=== PATIENT | female | born 1955 | race Caucasian/White ===

== ENCOUNTER 2019-07-26 14:02 | Outpatient (CLI) | payer OTHER, SELFPAY ==
--- NOTE | ~2019-07-26 | MM_ITS ---
EXAMINATION: MM screening jean BI w hannah HISTORY: Screening mammogram TECHNIQUE: Craniocaudal and mediolateral oblique 3-D tomosynthesis images were obtained and synthetic 2-D images were generated. CAD analysis was submitted and interpreted. COMPARISON: 05/31/2018, 05/23/2017 bilateral digital screening mammogram examinations BREAST PARENCHYMAL COMPOSITION: There are scattered areas of fibroglandular density. FINDINGS: There is no evidence of suspicious mass, calcification, or architectural distortion to sugg est malignancy in either breast. There has been no suspicious interval change. IMPRESSION: 1. No mammographic evidence of malignancy. 2. Recommend routine screening mammography in one year. BI-RADS Category 1: Negative Reviewed, dictated and finalized at location A.
== END 2019-07-26 14:03 | disposition home or self-care (01) ==
LOC: ANHIMG 14:16
PROVIDERS: PCP Family Medicine; Visit Provider Nurse Practitioner
DX: Z12.31 Encounter for screening mammogram for malignant neoplasm of breast (principal)
CPT/HCPCS: 77063; 77067

== ENCOUNTER → 2020-06-11 09:02 | Outpatient (CLI) | payer OTHER, SELFPAY ==
[2020-06-11 17:57] LABS: SARS-CoV-2 RNA PCR Positive
== END ==
PROVIDERS: PCP Family Medicine; Visit Provider Family Medicine
DX: U07.1 COVID-19 (principal)
CPT/HCPCS: C9803; U0003; U0005

== ENCOUNTER 2020-06-16 16:59 | Emergency (ER) | payer OTHER, SELFPAY ==
[2020-06-16] VITALS (16 sets, daily range): BP systolic 102–145; BP diastolic 60–84; PULSE 102–108; RESP 18–26; TEMP 37.1; O2SAT 91–97
--- NOTE | ~2020-06-16 | XR_ITS ---
XR chest 1V portable DATE: 06/16/2020 21:17 INDICATION: Cough, shortness of breath, nausea and vomiting. Covid-positive diagnosis last week. TECHNIQUE: Portable upright AP chest on 06/16/2020 at 2121 hours COMPARISON: portable AP chest at 1343 hours FINDINGS: Diffuse patchy infiltrate throughout the right lung, sparing only the apex. There is patchy infiltrate in the left mid and particularly left lower lung. Heart size appears normal. No pleural effusion or pneumothorax. IMPRESSION: Bilateral pulmonary infiltrates suggesting bilateral pneumonia Reviewed, dictated and finalized at location A.
--- NOTE | 2020-06-16 17:23 | ECG_ITS ---
Measurements Intervals [place] Rate: 108 P: 25 NM: 174 QRS: -2 QRSD: 98 T: 46 QT: 345 QTc: 463 Interpretive Statements SINUS TACHYCARDIA INCOMPLETE RIGHT BUNDLE BRANCH BLOCK ABNORMAL ECG Electronically Signed On 06-18-2020 12:47:00 CDT by Michael Tam D.O.
--- NOTE | 2020-06-16 21:10 | ED.GENADULT ---
HPI - General Adult General Chief complaint: Weakness Stated complaint: covid symptoms Time Seen by Provider: 06/16/20 20:56 History of Present Illness HPI narrative: Patient is a 65-year-old female who presents the emergency department with chief complaint of generalized weakness. Patient reports on she was diagnosed with COVID-19 reports that she has been having multiple episodes of nausea and vomiting and has been unable to keep fluids down. Patient reports that she had some discomfort in her epigastric region and reports still a bit of diarrhea with this. The patient reports has had some mild coughing but not really horrible the patient does report that she had a bit of productive sputum. Related Data Home Medications Medication Instructions Recorded Confirmed loratadine 10 mg tablet 10 mg PO DAILY 04/05/19 12/18/19 simvastatin 20 mg tablet 20 mg PO QPM tablet 04/05/19 12/18/19 black cohosh 540 mg capsule 540 mg PO DAILY cap 04/22/19 12/18/19 omega-3 fatty acids 500 mg capsule 500 mg PO DAILY 12/18/19 12/18/19 lisinopril 20 See Rx Instructions .ROUTE 05/18/20 05/18/20 mg-hydrochlorothiazide 12.5 mg .COMPLEX tablet tablet Allergies Allergy/AdvReac Type Severity Reaction Status Date / Time ibuprofen Allergy Severe Unknown Verified 05/18/20 13:11 Penicillins Allergy Unknown Unknown Verified 05/18/20 13:11 Review of Systems Review of Systems: Narrative: A 10 system review of systems was completed on the patient and is negative except for what is stated in the HPI. Nursing and ancillary documentation was reviewed. [facility] Past Medical History Medical History Allergic rhinitis Anxiety Asthma Dyslipidemia Environmental allergies Essential (primary) hypertension Melanoma left shoulder Mild intermittent asthma without complication Ovarian cyst Spondylolisthesis L5-S1 - 05/07/1997 Surgical History Surgical History History of sinus surgery 11/11/2014 History of skin surgery (~1987) melanoma removal left shoulder History of total hysterectomy (~1997) Family History Family History Other Carcinoma of colon Social History Social History Smoking status: Never smoker Tobacco type: cigarettes Second hand tobacco smoke exposure: No Smoking end date: 03/06/08 Alcohol intake: current Substance use: never Substance use type: does not use Gender identity (if verbalized by the patient): Female Exam Narrative: Exam Narrative: GENERAL: Well-appearing, well-nourished, and in no acute distress. HEAD: Normocephalic, atraumatic. EYES: PERRLA and EOMI. ENT: Nares clear, no rhinorrhea or epistaxis. Mucous membranes moist. NECK: Supple. CHEST: Clear to auscultation. No respiratory distress. HEART: Regular rate and rhythm. No murmur heard. Normal peripheral pulses. ABDOMEN: Soft, tender to palpation in the epigastric region, nondistended, normal active bowel sounds. EXTREMITIES: Normal range of motion. No edema. SKIN: Warm, dry, no rash. NEURO: No focal deficits. Alert and oriented x3. PSYCH: Normal mood and affect. Course Vital Signs Vital signs: Vital Signs Temperature 37.1 C 06/16/20 17:16 Pulse Rate 108 H 06/16/20 17:16 Respiratory Rate 18 06/16/20 17:16 Blood Pressure 112/71 06/16/20 17:16 Pulse Oximetry 92 06/16/20 17:16 Temperature 37.1 C 06/16/20 17:16 Pulse Rate 102 H 06/16/20 21:02 Respiratory Rate 25 H 06/16/20 23:01 Blood Pressure 128/76 06/16/20 23:01 Pulse Oximetry 93 06/16/20 23:01 Medical Decision Making Vital Signs Vital Signs: Vital Signs Temperature 37.1 C 06/16/20 17:16 Pulse Rate 108 H 06/16/20 17:16 Respiratory Rate 18 06/16/20 17:16 Blood Pressure 112/71
[2020-06-16] MEDS: SODIUM CHLORIDE 0.9% IV 1,000 ML 999 ML IV CONT ×2 (21:32→23:20)
[2020-06-16] MEDS: ONDANSETRON INJ 4 MG/2 ML VIAL IV PUSH (21:33)
[2020-06-16 21:38] LABS: Basophils Percent Auto 0.2 % (0.2-1.2); Hematocrit 40.7 % (37.0-47.0); Hemoglobin 13.5 g/dL (12.0-15.0); Immature Granulocyte Absolute 0.01 K/mm3 (0.00-0.031); Immature Granulocyte Percent A 0.2 % (0-0.5); Lymphocytes Absolute Auto 0.71 K/mm3 (0.9-3.2); Lymphocytes Percent Auto 12.2 % (18.3-44.2); Mean Corpuscular HGB Conc 33.2 g/dl (32-36); Mean Corpuscular Hemoglobin 30.7 pg (26-34); Mean Corpuscular Volume 92.5 fl (80-100); Mean Platelet Volume 11.7 fl (7.4-10.4); Monocytes Absolute Auto 0.5 K/mm3 (0.1-0.6); Monocytes Percent Auto 8.9 % (2.6-8.5); Neutrophils Absolute Auto 4.6 K/mm3 (1.3-6.7); Neutrophils Percent Auto 78.5 % (45.5-73.1); Platelet Count Result 213 k/mm3 (150-375); White Blood Count 5.8 K/mm3 (4.5-10.0)
[2020-06-16 21:48] LABS: Alanine Aminotransferase 39 U/L (4-35); Albumin Level 4.4 g/dL (3.5-5.1); Alkaline Phosphatase 87 U/L (38-126); Anion Gap 10 mmol/L (8-16); Aspartate Amino Transferase 36 U/L (14-36); Bilirubin,Total 0.4 mg/dL (0.2-1.3); Blood Urea Nitrogen 21 mg/dL (7-17); Calcium 8.8 mg/dL (8.4-10.2); Carbon Dioxide 26 mmol/L (22-30); Chloride 102 mmol/L (98-107); Estimated CRCL calculation 58 ml/min; Estimated Glomerular Filt Rate > 60; Glucose 115 mg/dL (65-105); Lipase 54 U/L (23-300); Potassium 3.7 mmol/L (3.4-5.0); Sodium 138 mmol/L (137-145)
[2020-06-16 21:59] LABS: Troponin I < 0.012 ng/mL (0.000-0.034)
[2020-06-16 23:36] LABS: Add Urine Microscopic? YES; Appearance Urine Cloudy (Clear); Bacteria Urine Trace /hpf; Bilirubin Urine Negative (Negative); Blood Urine 1+ (Negative); Color Urine Yellow (Yellow); Glucose Urine UA Negative (Negative); Ketones Urine 1+ mg/dL (Negative); Leukocyte Esterase Ur Negative LEU/UL (Negative); Mucus Urine Heavy /lpf; Nitrate Urine Positive (Negative); Protein Urine 1+ mg/dL (Negative); RBC Urine 0-2 /hpf (0-2); Specific Grav Ur 1.027 (1.001-1.035); Squamous Epithelial Cell Urine Moderate /hpf (Few); Urobilinogen Urine Negative mg/dL (<2.0)
[2020-06-16] MEDS: ACETAMINOPHEN 500 MG TABLET 1000 MG PO (23:53)
[2020-06-17 00:52] VITALS: BP 126/72; PULSE 89; RESP 22; O2SAT 95
== END 2020-06-17 00:52 | disposition home or self-care (01) ==
PROVIDERS: Emergency Provider Emergency Medicine; PCP Family Medicine
DX: U07.1 COVID-19 (principal); J12.82 Pneumonia due to coronavirus disease 2019; E86.0 Dehydration; E78.5 Hyperlipidemia, unspecified; I10 Essential (primary) hypertension; Z85.820 Personal history of malignant melanoma of skin; J45.20 Mild intermittent asthma, uncomplicated
CPT/HCPCS: 36415; 71045; 80053; 81001; 83605; 83690; 84484; 85025; 93005; 96361; 96374; 99284; A9270; J2405; J7030

== ENCOUNTER 2020-07-28 07:38 | Outpatient (CLI) | payer OTHER, SELFPAY ==
--- NOTE | ~2020-07-28 | MM_ITS ---
EXAMINATION: MM screening jean BI w hannah HISTORY: Screening mammogram TECHNIQUE: Craniocaudal and mediolateral oblique 3-D tomosynthesis images were obtained and synthetic 2-D images were generated. CAD analysis was submitted and interpreted. COMPARISON: 07/26/2019, 05/23/2018, 05/24/2007 bilateral digital screening mammogram examinations BREAST PARENCHYMAL COMPOSITION: There are scattered areas of fibroglandular density. FINDINGS: There is no evidence of suspicious mass, calcification, or architectural distortion to sugg est malignancy in either breast. There has been no suspicious interval change. IMPRESSION: 1. No mammographic evidence of malignancy. 2. Recommend routine screening mammography in one year. BI-RADS Category 1: Negative Reviewed, dictated and finalized at location A.
== END 2020-07-28 07:39 | disposition home or self-care (01) ==
PROVIDERS: PCP Family Medicine; Visit Provider Obstetrics & Gynecology Gynecology
DX: Z12.31 Encounter for screening mammogram for malignant neoplasm of breast (principal)
CPT/HCPCS: 77063; 77067

== ENCOUNTER 2021-08-03 08:06 | Outpatient (CLI) | payer OTHER, SELFPAY ==
--- NOTE | ~2021-08-03 | MM_ITS ---
EXAMINATION: MM screening jean BI w hannah HISTORY: Screening mammogram TECHNIQUE: Craniocaudal and mediolateral oblique 3-D tomosynthesis images were obtained and synthetic 2-D images were generated. CAD analysis was submitted and interpreted. COMPARISON: 07/28/2020, 07/26/2019, 05/31/2018 bilateral screening mammogram examinations BREAST PARENCHYMAL COMPOSITION: There are scattered areas of fibroglandular density. FINDINGS: Right breast: There is no evidence of suspicious mass, calcification, or architectural dist ortion to suggest malignancy in the right breast. There has been no suspicious interval change. Left breast: There is a focal asymmetry in the posterior mid and lower outer left breast. Diagnostic left mammogram and ultrasound examination are recommended IMPRESSION: 1. Focal asymmetry, posterior lower mid to outer left breast 2. Diagnostic left mammogram and left breast ultrasound examination are recommended. BI-RADS Category 0: Incomplete: Needs additional imaging evaluation. Reviewed, dictated and finalized at location A. IMPRESSION: 1. Focal asymmetry, posterior lower mid to outer left breast 2. Diagnostic left mammogram and left breast ultrasound examination are recomme nded. BI-RADS Category 0: Incomplete: Needs additional imaging evaluation.
== END 2021-08-03 08:07 | disposition home or self-care (01) ==
LOC: ANHIMG 08:09
PROVIDERS: PCP Family Medicine; Visit Provider Nurse Practitioner
DX: Z12.31 Encounter for screening mammogram for malignant neoplasm of breast (principal); R92.8 Other abnormal and inconclusive findings on diagnostic imaging of breast
CPT/HCPCS: 77063; 77067

== ENCOUNTER 2021-08-13 11:50 | Outpatient (CLI) | payer OTHER, SELFPAY ==
--- NOTE | ~2021-08-13 | MMUS_ITS ---
EXAMINATION: MM diagnostic jean LT w hannah, US breast LT limited HISTORY: Left breast asymmetry on screening mammogram TECHNIQUE: Additional 3-D tomosynthesis images of the left breast were performed and synthetic 2-D im ages were generated. CAD analysis was submitted and interpreted. High resolution limited left breast ultrasound was performed. COMPARISON: 08/03/2021, 07/28/2020, 07/26/2019, 05/31/2018 FINDINGS: MAMMOGRAPHIC FINDINGS: There is a return to baseline fibroglandular appearance with spot compression of the left breast in t he area questioned on screening mammogram. ULTRASOUND: There is no evidence of focal abnormal solid or cystic mass in the vicinity of the mammographic findi ng in question. IMPRESSION: 1. No mammographic or sonographic evidence of malignancy. 2. Recommend routine screening mammography in one year. BI-RADS Category 1: Negative Reviewed, dictated and finalized at location A. IMPRESSION: 1. No mammographic or sonographic evidence of malignancy. 2. Recommend routine screening mammography in one year. BI-RADS Category 1: Negative
== END 2021-08-13 11:51 | disposition home or self-care (01) ==
LOC: ANHIMG 11:57
PROVIDERS: PCP Family Medicine; Visit Provider Obstetrics & Gynecology Gynecology
DX: R92.8 Other abnormal and inconclusive findings on diagnostic imaging of breast (principal)
CPT/HCPCS: 76642; 77061; 77065; G0279

== ENCOUNTER 2022-06-29 07:33 | Outpatient (CLI) | payer OTHER, MEDICARE, SELFPAY ==
--- NOTE | 2022-06-29 07:47 | ECG_ITS ---
Measurements Intervals [place] Rate: 70 P: 32 NE: 192 QRS: 18 QRSD: 83 T: 47 QT: 390 QTc: 423 Interpretive Statements SINUS RHYTHM COMPARED TO ECG 06/16/2020 17:23:53 SINUS RHYTHM NOW PRESENT Electronically Signed On 06-29-2022 9:47:09 CDT by Maral Jamison M.D.
== END 2022-06-29 07:34 | disposition home or self-care (01) ==
LOC: ANHIMG 07:38
PROVIDERS: PCP Family Medicine; Visit Provider Nurse Practitioner
DX: I45.10 Unspecified right bundle-branch block (principal)
CPT/HCPCS: 93005

== ENCOUNTER 2022-07-04 12:03 | Outpatient (CLI) | payer OTHER, MEDICARE, SELFPAY ==
--- NOTE | ~2022-07-04 | XR_ITS ---
Clinical Indication: Shortness of breath PA and lateral views of the chest: Comparison: 06/16/2020 Findings: The lungs are clear, without evidence of focal consolidation or pleural effusion. Cardiome diastinal silhouette is within normal limits. Bones and soft tissues are unremarkable. Impression: Normal chest. Reviewed, dictated and finalized at location . Impression: Normal chest.
== END 2022-07-04 12:04 ==
PROVIDERS: PCP Family Medicine; Visit Provider Family Medicine
DX: R06.02 Shortness of breath (principal)
CPT/HCPCS: 71046

== ENCOUNTER 2022-10-25 07:29 | Outpatient (CLI) | payer MEDICARE, SELFPAY ==
--- NOTE | ~2022-10-25 | MM_ITS ---
EXAMINATION: MM screening jean BI w hannah HISTORY: Screening mammogram TECHNIQUE: Craniocaudal and mediolateral oblique 3-D tomosynthesis images were obtained and synthetic 2-D images were generated. CAD analysis was submitted and interpreted. COMPARISON: 08/13/2021 diagnostic left mammogram and limited left breast ultrasound examination 08/03/2021, 07/28/2020, 07/26/2019 bilateral screening mammogram examinations. BREAST PARENCHYMAL COMPOSITION: There are scattered areas of fibroglandular density. FINDINGS: There is no evidence of suspicious mass, calcification, or architectural distortion to sugg est malignancy in either breast. There has been no suspicious interval change. IMPRESSION: 1. No mammographic evidence of malignancy. 2. Recommend routine screening mammography in one year. Reviewed, dictated and finalized at location A.
== END 2022-10-25 07:30 | disposition home or self-care (01) ==
PROVIDERS: PCP Family Medicine; Visit Provider Nurse Practitioner
DX: Z12.31 Encounter for screening mammogram for malignant neoplasm of breast (principal)
CPT/HCPCS: 77063; 77067

== ENCOUNTER 2022-10-26 11:54 | Outpatient (CLI) | payer MEDICARE, SELFPAY ==
--- NOTE | ~2022-10-26 | CT_ITS ---
EXAMINATION: CT abdomen pelvis w con DATE: 10/26/2022 12:31 INDICATION: Right lower quadrant abdominal pain for 3 days. Nausea. TECHNIQUE: Computed tomography (CT) of the abdomen and pelvis was performed with 100 CC Omnipaque 350 intravenous contrast. Automated exposure control and iterative reconstruction technique were employe d. Exam dose: 862.27 mGy-cm total exam DLP. COMPARISON: None. FINDINGS: There is mild bibasilar dependent lower lobe discoid atelectasis. There are at least four 5 mm or smaller hepatic cysts. The liver, gallbladder, bile ducts, pancreas, pancreatic duct and spleen otherwise appear unremarkable. Normal morphology of the adrenal glands. Occasional small cysts of each kidney and one larger lateral upper pole left renal 1.7 cm cyst. No urinary tract calculus or hydroureteronephrosis. The urinary bladder is unremarkable. Status post hysterectomy. There is atherosclerotic calcification but normal caliber of the abdominal aorta. No intraperitoneal or retroperitoneal or pelvic mass lesion or adenopathy or ascites. Normal appendix. There is no evidence of appendicitis. There are scattered diverticula of left and to a lesser extent right colon. There is lateral right paracolic fat stranding at the cecum and ascending colon, likely due to epiplo ic appendagitis. Diverticulitis is considered less likely. No abscess is identified. No bowel obstruction or intraperitoneal free air. Degenerative changes of the lower thoracic and lumbar spine including severe degenerative disc diseas e at L5-S1. Bilateral L5 pars intra-articular is defects with grade 2 anterolisthesis at L5-S1. IMPRESSION: Epiploic appendagitis of right colon Hepatic and bilateral renal cysts Mild colonic diverticulosis Bilateral L5 pars intra-articular is defects with associated grade 2 anterolisthesis at L5-S1 Severe degenerative disc disease at L5-S1 Reviewed, dictated and finalized at Location A. Reviewed, dictated and finalized at location A. IMPRESSION: Epiploic appendagitis of right colon Hepatic and bilateral renal cysts Mild colonic diverticulosis Bilateral L5 pars intra-articular is defects with associated grade 2 anterolist hesis at L5-S1 Severe degenerative disc disease at L5-S1
[2022-10-26 12:24] LABS: Estimated Glomerular Filt Rate > 60
== END 2022-10-26 11:55 | disposition home or self-care (01) ==
PROVIDERS: PCP Family Medicine; Visit Provider Family Medicine
DX: R10.31 Right lower quadrant pain (principal); K63.89 Other specified diseases of intestine; N28.1 Cyst of kidney, acquired; K76.89 Other specified diseases of liver; K57.90 Diverticulosis of intestine, part unspecified, without perforation or abscess without bleeding; M43.17 Spondylolisthesis, lumbosacral region; M51.37 Other intervertebral disc degeneration, lumbosacral region
CPT/HCPCS: 74177; Q9967

== ENCOUNTER 2022-11-05 08:32 | Outpatient (CLI) | payer MEDICARE, SELFPAY ==
--- NOTE | ~2022-11-05 | DEXA_ITS ---
Bone Density Report Name: FATOU BHATT Age: 67 Sex: Female Ethnicity: White Date of : 1955 Indication: postmenopausal; screening for osteoporosis; height loss; history of glucocorticoids; asthma or emphysema; hysterectomy; Referring Provider: JHON, ALAYNA Study: Bone densitometry was performed. Exam Date: November 05, 2022 Accession number: [id number] Bone Density: Region BMD T-score Z-score Classification AP Spine(L1-L4) 1.032 -0.1 1.7 Normal Femoral Neck (Left) 0.835 -0.1 1.4 Normal Total Hip (Left) 1.040 0.8 2.1 Normal Femoral Neck (Right) 0.791 -0.5 1.0 Normal Total Hip (Right) 0.978 0.3 1.5 Normal Total Hip Mean 1.009 0.6 1.8 Normal World Health Organization criteria for BMD impression classify patients as: Normal (T-score at or above -1.0), Osteopenia (T-score between -1.0 and -2.5), or Osteoporosis (T-score at or below -2.5). 10-year Fracture Risk: FRAX not reported because: All T-scores for Spine Total, Hip Total, Femoral Neck at or above -1.0 Previous Exams: Region Exam Age BMD T-score BMD Change BMD Change Date g/cm2 vs Baseline vs Previous AP Spine (L1-L4) 11/05/2022 67 1.032 -0.1 -0.004 (-0.4%) 0.028 (2.8%)* 05/31/2018 63 1.004 -0.4 -0.031 (-3.0%) -0.031 (-3.0%) 03/09/2015 59 1.035 -0.1 Total Hip(Left) 11/05/2022 67 1.040 0.8 -0.008 (-0.7%) -0.057 (-5.2%) 05/31/2018 63 1.097 1.3 0.049 (4.7%)* 0.049 (4.7%)* 03/09/2015 59 1.048 0.9 Total Hip(Right) 11/05/2022 67 0.978 0.3 -0.023 (-2.3%) -0.105 (-9.7%) 05/31/2018 63 1.082 1.2 0.082 (8.2%)* 0.082 (8.2%)* 03/09/2015 59 1.000 0.5 *Denotes significance at 95% confidence level, LSC for AP Spine = 0.022 g/cm2, LSC for Total Hip = 0.027 g/cm2 Clinical Information Provided by Patient: Has taken Glucocorticoids Has used the following medications: Vitamin D, Calcium Has the following medical conditions: Asthma or Emphysema, Hysterectomy Patient maximum height was 64.5 Menopause Age: 42 No regular weight bearing exercise Drinks caffeinated beverages Onset of menses at age 14 Number of children 0 Impression: The patient has normal bone mass. The patient has risk factors, including: history of glucocorticoid therapy. The BMD for the Total Hip(Left) decreased, changing by -5.2% since the last DXA exam. The BMD for the Total Hip(Right) decreased, changing by -9.7% since the last DXA exam. D
== END 2022-11-05 08:33 | disposition home or self-care (01) ==
LOC: ANHIMG 08:35
PROVIDERS: PCP Family Medicine; Visit Provider Nurse Practitioner
DX: Z78.0 Asymptomatic menopausal state (principal)
CPT/HCPCS: 77080

== ENCOUNTER 2023-01-30 10:56 | Emergency (ER) | payer MEDICARE, SELFPAY ==
--- NOTE | ~2023-01-30 | CT_ITS ---
EXAMINATION: CT brain wo con DATE: 01/30/2023 13:44 INDICATION: Dizziness. TECHNIQUE: Computed tomography (CT) of the head was performed without intravenous contrast. The mA wa s adjusted according to patient size. Iterative reconstruction technique was employed. The dose-lengt h product was 605.33 mGy-cm. COMPARISON: None FINDINGS: There is no intracranial hemorrhage, acute infarction, or abnormal intracranial mass lesion . There are scattered areas of low attenuation in the cerebral white matter, which is within normal l imits for the patient's age. The ventricles are normal in size. The orbits are normal. There is mucos al thickening in the paranasal sinuses. The mastoid air cells are normal. IMPRESSION: 1. Normal aging brain. Reviewed, dictated and finalized at location A. SERVICE TECHNICIAN IMPRESSION: 1. Normal aging brain.
[2023-01-30 11:09] VITALS: BP 152/90; PULSE 90; RESP 18; TEMP 36.5; O2SAT 97
[2023-01-30 12:02] VITALS: BP 132/80; PULSE 83; RESP 17; O2SAT 97
--- NOTE | 2023-01-30 12:11 | ECG_ITS ---
Measurements Intervals [place] Rate: 78 P: 36 ME: 184 QRS: 13 QRSD: 88 T: 40 QT: 383 QTc: 439 Interpretive Statements SINUS RHYTHM INCOMPLETE RIGHT BUNDLE BRANCH BLOCK LOW QRS VOLTAGE IN PRECORDIAL LEADS BASELINE ARTIFACT- I, II, III, AVR, AVL, AVF, V5 BORDERLINE ECG COMPARED TO ECG 06/29/2022 07:56:37 NO SIGNIFICANT CHANGES Electronically Signed On 01-30-2023 13:04:19 [employer] by Michael Tam D.O.
[2023-01-30 12:31] LABS: Basophils Absolute Auto 0.1 K/mm3 (0.0-0.1); Basophils Percent Auto 0.8 % (0.2-1.2); Eosinophils Absolute Auto 0.2 K/mm3 (0-0.3); Eosinophils Percent Auto 2.5 % (0-4.4); Hematocrit 42.3 % (37.0-47.0); Hemoglobin 13.3 g/dL (12.0-15.0); Immature Granulocyte Absolute 0.02 K/mm3 (0.00-0.031); Immature Granulocyte Percent A 0.3 % (0-0.5); Lymphocytes Absolute Auto 1.63 K/mm3 (0.9-3.2); Lymphocytes Percent Auto 25.3 % (18.3-44.2); Mean Corpuscular HGB Conc 31.4 g/dl (32-36); Mean Corpuscular Hemoglobin 29.6 pg (26-34); Mean Corpuscular Volume 94.2 fl (80-100); Mean Platelet Volume 11.8 fl (7.4-10.4); Monocytes Absolute Auto 0.6 K/mm3 (0.1-0.6); Neutrophils Percent Auto 62.1 % (45.5-73.1); Platelet Count Result 242 k/mm3 (150-375); Red Blood Count 4.49 M/mm3 (4.2-5.4); Red Cell Distribution Width 14.3 % (11.5-14.5); White Blood Count 6.4 K/mm3 (4.5-10.0)
[2023-01-30 12:43] LABS: Alanine Aminotransferase 24 U/L (6-35); Albumin Level 4.5 g/dL (3.5-5.1); Alkaline Phosphatase 82 U/L (38-126); Anion Gap 11 mmol/L (8-16); Aspartate Amino Transferase 26 U/L (14-36); Bilirubin,Total 0.6 mg/dL (0.2-1.3); Blood Urea Nitrogen 17 mg/dL (7-17); Calcium 9.5 mg/dL (8.4-10.2); Carbon Dioxide 26 mmol/L (22-30); Chloride 98 mmol/L (98-107); Estimated CRCL calculation 72 ml/min; Estimated Glomerular Filt Rate > 60; Glucose 103 mg/dL (65-110); Sodium 135 mmol/L (137-145)
[2023-01-30 13:56] VITALS: BP 121/80; BP 139/83; PULSE 79; PULSE 83
[2023-01-30 13:58] VITALS: BP 128/86; PULSE 88
--- NOTE | 2023-01-30 14:12 | ED.DIZZY ---
HPI - Dizziness General Chief Complaint: Dizziness Stated Complaint: episode of dizziness on monday Time Seen by Provider: 01/30/23 12:19 History of Present Illness HPI Narrative: 67-year-old female presenting to emergency department for evaluation of dizziness and not feeling well. Patient reports on Monday she had onset of dizziness and a wavy sensation. patient reports his symptoms were worse on Monday but have begun to improve. Patient states today she just feels off. Patient denies any focal numbness or weakness. Patient denies any associated nausea vomiting or diarrhea. Related Data Home Medications Medication Instructions Recorded Confirmed fluticasone furoate 200 1 inh inhalation DAILY 12/13/22 12/14/22 mcg/actuation blister powder for inhalation (Arnuity Ellipta) turmeric root extract 1,053 mg 1,076 mg PO DAILY 12/13/22 12/14/22 tablet Allergies Allergy/AdvReac Type Severity Reaction Status Date / Time ibuprofen Allergy Severe Unknown Verified 12/14/22 14:20 naproxen [From Naprosyn] Allergy Severe Swelling Verified 12/14/22 14:20 of Lip/Tongue/Throat Penicillins Allergy Unknown Unknown Verified 12/14/22 14:20 Review of Systems Review of Systems: All systems reviewed & are unremarkable except as noted in HPI and below PMFSH Past Medical History Medical History Allergic rhinitis Anxiety Asthma COVID-19 Dyslipidemia Environmental allergies Essential (primary) hypertension History of COVID-19 06/2020 Melanoma left shoulder Mild intermittent asthma without complication Ovarian cyst Pneumonia due to 2019 novel coronavirus Pre-diabetes Spondylolisthesis L5-S1 - 05/07/1997 Vitamin D deficiency Surgical History Surgical History History of sinus surgery 11/11/2014 History of skin surgery (~1987) melanoma removal left shoulder History of total hysterectomy (~1997) Family History Family History Other Carcinoma of colon Social History Social History Smoking packs per day: 2 Smoking cigarettes per day: 40.0 Years smoked: 40 Smoking pack-years: 80.00 Smoking status: Former smoker Tobacco type: cigarettes Second hand tobacco smoke exposure: No Smoking end date: 03/06/08 Alcohol intake: current Alcohol use details: 4 glasses of wine consumed weekly Substance use: never Substance use type: does not use Lack of Transportation: No Lack of Food: Never True Current Housing: I Have Housing Concerned About Future Housing: No Difficulty Paying Gas/Electric Bills: No Difficulty Paying for Meds: No Currently Unemployed: No Education: High School Diploma/GED Difficulty w/ Childcare or Family Care: No Living arrangements: with family Gender identity (if verbalized by the patient): Female Exam Narrative: APPEARANCE: Well appearing, no pain, no distress, well-nourished. HEAD: normocephalic, atraumatic. EYES: PERRLA/EOMI, conjunctivae clear. NOSE: Normal no drainage EARS:TMS clear with good light reflex. THROAT: Pharynx clear, no exudate. NECK: Supple. No adenopathy, no masses. RESPIRATORY: Airway patent, respirations nonlabored. Clear to auscultation bilaterally, no rales, rhonchi, wheezing. CARDIOVASCULAR: Regular rate and rhythm without murmurs rubs or gallops. ABDOMINAL: Soft, nontender, nondistended, normal bowel sounds MUSCULOSKELETAL: Moves all extremities. Strength/ROM intact, No edema, No calf tenderness. NEURO: Alert. Cranial nerves II through XII intact. Normal for tobacco or tandem gait, normal heel and toe stand. Negative Romberg SKIN: Warm, dry. Normal Color Course Course Emergency Course: 67-year-old female presents to the emergency department for dizziness. Patient did feel improv
[2023-01-30] MEDS: MECLIZINE HCL 25 MG TABLET PO (14:15)
[2023-01-30 14:37] VITALS: PULSE 84; RESP 15; O2SAT 95
[2023-01-30 15:13] LABS: Influenza A QL RT-PCR Negative (Negative); Influenza B QL RT-PCR Negative (Negative); RSV RNA, RT-PCR Negative (Negative); SARS-CoV-2 RNA PCR Negative (Negative)
[2023-01-30 15:54] VITALS: BP 128/68; PULSE 90; RESP 18; O2SAT 99
== END 2023-01-30 15:55 | disposition home or self-care (01) ==
PROVIDERS: Emergency Provider Emergency Medicine; PCP Family Medicine
DX: H81.10 Benign paroxysmal vertigo, unspecified ear (principal); Z20.822 Contact with and (suspected) exposure to COVID-19; I10 Essential (primary) hypertension; J45.20 Mild intermittent asthma, uncomplicated; E78.5 Hyperlipidemia, unspecified; E55.9 Vitamin D deficiency, unspecified; Z85.820 Personal history of malignant melanoma of skin; Z86.16 Personal history of COVID-19; Z87.01 Personal history of pneumonia (recurrent); Z90.710 Acquired absence of both cervix and uterus; Z87.891 Personal history of nicotine dependence
CPT/HCPCS: 36415; 70450; 80053; 85025; 87637; 93005; 99284; A9270

== ENCOUNTER 2023-07-04 06:56 | Outpatient (CLI) | payer MEDICARE, SELFPAY ==
--- NOTE | ~2023-07-04 | CT_ITS ---
CT Scan of the Chest without Contrast: Clinical Indication: Lung cancer screening, nicotine dependence Technique: Contiguous sections were acquired throughout the chest without intravenous contrast. Dose reduction technique was used on this scan by utilizing automated exposure control and iterative recon struction technique. The dose-length product (DLP) was 140.55 mGy-cm. Findings: There is no evidence of any significant mediastinal, hilar or axillary lymphadenopathy. The mediastin al soft tissues appear normal. There is no evidence of pleural or pericardial effusion. 6 mm irregular nodule or scarring present in the right lung apex. There is mild bibasilar scarring or atelectatic change. Minimal emphysema. Images through the upper abdomen reveal no abnormalities. Impression: Lung RADS 3: Probably benign. Six-month follow-up screening CT advised. Reviewed, dictated and finalized at [facility]. Impression: Lung RADS 3: Probably benign. Six-month follow-up screening CT advised.
== END 2023-07-04 06:57 | disposition home or self-care (01) ==
PROVIDERS: PCP Family Medicine; Visit Provider Family Medicine
DX: Z12.2 Encounter for screening for malignant neoplasm of respiratory organs (principal); Z87.891 Personal history of nicotine dependence
CPT/HCPCS: 71271

== ENCOUNTER 2023-08-07 05:57 | Day surgery (SDC) | payer MEDICARE, SELFPAY ==
[2023-06-26 10:05] VITALS: BMI 32.4
--- NOTE | 2023-08-01 09:38 | PM.HPGS ---
History of Present Illness History of Present Illness Consent: Risks, benefits, and alternatives have been discussed and questions answered. Patient agrees to proceed with procedure. Chief complaint: Family HX Colon Cancer, Personal HX Polyps Narrative: Gin Daley is a 68 year old female With a family history of colon cancer and who herself had several polyps removed 5 years ago. Review of Systems Review of Systems: All systems reviewed & are unremarkable except as noted in HPI and below PMFSH Past Medical History Medical History Allergic rhinitis Anxiety Asthma Dyslipidemia Environmental allergies Essential (primary) hypertension History of COVID-19 06/2020 Intermittent low back pain Melanoma left shoulder Mild intermittent asthma without complication Ovarian cyst Pneumonia due to 2019 novel coronavirus Pre-diabetes Spondylolisthesis L5-S1 - 05/07/1997 Vitamin D deficiency Surgical History Surgical History History of sinus surgery 11/11/2014 History of skin surgery (~1987) melanoma removal left shoulder History of total hysterectomy (~1997) Family History Family History Other Carcinoma of colon Social History Social History Smoking packs per day: 2 Smoking cigarettes per day: 40.0 Years smoked: 40 Smoking pack-years: 80.00 Smoking status: Former smoker Tobacco type: cigarettes Second hand tobacco smoke exposure: No Smoking end date: 07/04/08 Alcohol intake: current Drinks per week: 3 Alcohol use details: 4 glasses of wine consumed weekly Substance use: current Substance use type: marijuana Other substance usage details: 3x per week Last use: 3 days ago Do You Feel Safe in your Home?: Yes Lack of Transportation: No Lack of Food: Never True Current Housing: I Have Housing Concerned About Future Housing: No Difficulty Paying Gas/Electric Bills: No Difficulty Paying for Meds: No Currently Unemployed: No Education: High School Diploma/GED Difficulty w/ Childcare or Family Care: No Living arrangements: with family Gender identity (if verbalized by the patient): Female Meds Home Medications and Allergies Home Medications Medication Instructions Recorded Confirmed Type albuterol sulfate 90 mcg/actuation 2 puff inhalation Q4-6H PRN 05/02/22 08/07/23 Rx aerosol inhaler (ProAir HFA) shortness of breath or wheezing #8.5 grams turmeric root extract 1,053 mg 1,076 mg PO DAILY 12/13/22 08/07/23 History tablet meclizine 25 mg tablet 25 mg PO BID PRN dizziness #20 tabs 01/30/23 08/07/23 Rx simvastatin 20 mg tablet 20 mg PO QPM #90 tabs 02/06/23 08/07/23 Rx lisinopril 20 1 tablet PO DAILY #90 tabs 02/08/23 08/07/23 Rx mg-hydrochlorothiazide 12.5 mg tablet montelukast 10 mg tablet 10 mg PO DAILY #90 tabs 03/01/23 08/07/23 Rx fluticasone propionate 50 2 spray intranasal DAILY #48 grams 05/16/23 08/07/23 Rx mcg/actuation nasal spray,suspension (Flonase Allergy Relief) fluticasone furoate 200 1 inh inhalation DAILY #30 ea 05/19/23 08/07/23 Rx mcg/actuation blister powder for inhalation (Arnuity Ellipta) Allergies Allergy/AdvReac Type Severity Reaction Status Date / Time ibuprofen Allergy Severe Unknown Verified 08/07/23 06:39 naproxen [From Naprosyn] Allergy Severe Swelling Verified 08/07/23 06:39 of Lip/Tongue/Throat Penicillins Allergy Unknown Unknown Verified 08/07/23 06:39 amlodipine AdvReac Mild pedal edema Verified 08/07/23 06:39 Exam Resp: Auscultation: clear to auscultation bilaterally Cardio: Rate: regular rate Rhythm: regular rhythm GI: GI Palp: Yes Soft to palpation and No Tenderness to palpation present (GI) Assessment and Plan Assessment and plan (1)
[2023-08-07 06:40] VITALS: BP 126/82; PULSE 80; RESP 17; TEMP 37.6; O2SAT 99
--- NOTE | 2023-08-07 07:19 | WPDANESEPPF ---
Anes - Initial Pre Proc Eval Procedure: Operation Date: 08/07/23 08:00 Proposed Procedures p Diagnostic Colonoscopy - Jimbo Horner MD Date/Time: 08/07/23 07:19 Surgeon: Jimbo Horner MD Pre Op Diagnosis: Family HX Colon Cancer, Personal HX Polyps Patient Data Age: 68 Gender: F Height: 1.63 m Weight: 83.9 kg Last Vital Signs Temp 37.6 C H 08/07/23 06:40 Pulse 80 08/07/23 06:40 Resp 17 08/07/23 06:40 BP 126/82 08/07/23 06:40 Pulse Ox 99 08/07/23 06:40 O2 Del Method Room Air 08/07/23 06:40 Allergies Allergy/AdvReac Type Severity Reaction Status Date / Time ibuprofen Allergy Severe Unknown Verified 08/07/23 06:39 naproxen [From Naprosyn] Allergy Severe Swelling Verified 08/07/23 06:39 of Lip/Tongue/Throat Penicillins Allergy Unknown Unknown Verified 08/07/23 06:39 amlodipine AdvReac Mild pedal edema Verified 08/07/23 06:39 Home Medications Medication Instructions Recorded Confirmed Type albuterol sulfate 90 mcg/actuation 2 puff inhalation Q4-6H PRN 05/02/22 08/07/23 Rx aerosol inhaler (ProAir HFA) shortness of breath or wheezing #8.5 grams turmeric root extract 1,053 mg 1,076 mg PO DAILY 12/13/22 08/07/23 History tablet meclizine 25 mg tablet 25 mg PO BID PRN dizziness #20 tabs 01/30/23 08/07/23 Rx simvastatin 20 mg tablet 20 mg PO QPM #90 tabs 02/06/23 08/07/23 Rx lisinopril 20 1 tablet PO DAILY #90 tabs 02/08/23 08/07/23 Rx mg-hydrochlorothiazide 12.5 mg tablet montelukast 10 mg tablet 10 mg PO DAILY #90 tabs 03/01/23 08/07/23 Rx fluticasone propionate 50 2 spray intranasal DAILY #48 grams 05/16/23 08/07/23 Rx mcg/actuation nasal spray,suspension (Flonase Allergy Relief) fluticasone furoate 200 1 inh inhalation DAILY #30 ea 05/19/23 08/07/23 Rx mcg/actuation blister powder for inhalation (Arnuity Ellipta) Patient hx anesthesia problems: none Family hx anesthesia problems: none Results Review: All pre-operative results and documents have been reviewed as part of the pre-operative evaluation. [facility] Past Medical History Medical History Allergic rhinitis Anxiety Asthma Dyslipidemia Environmental allergies Essential (primary) hypertension History of COVID-19 06/2020 Intermittent low back pain Melanoma left shoulder Mild intermittent asthma without complication Ovarian cyst Pneumonia due to 2019 novel coronavirus Pre-diabetes Spondylolisthesis L5-S1 - 05/07/1997 Vitamin D deficiency Surgical History Surgical History History of sinus surgery 11/11/2014 History of skin surgery (~1987) melanoma removal left shoulder History of total hysterectomy (~1997) Family History Family History Other Carcinoma of colon Social History Social History Smoking packs per day: 2 Smoking cigarettes per day: 40.0 Years smoked: 40 Smoking pack-years: 80.00 Smoking status: Former smoker Tobacco type: cigarettes Second hand tobacco smoke exposure: No Smoking end date: 07/04/08 Alcohol intake: current Drinks per week: 3 Alcohol use details: 4 glasses of wine consumed weekly Substance use: current Substance use type: marijuana Other substance usage details: 3x per week Last use: 3 days ago Do You Feel Safe in your Home?: Yes Lack of Transportation: No Lack of Food: Never True Current Housing: I Have Housing Concerned About Future Housing: No Difficulty Paying Gas/Electric Bills: No Difficulty Paying for Meds: No Currently Unemployed: No Education: High School Diploma/GED Difficulty w/ Childcare or Family Care: No Living arrangements: with family Gender identity (if verbalized by the patient): Female Anes - Eval Final PreProcedure Day of Procedure
[2023-08-07] MEDS: LACTATED RINGERS 1,000 ML 150 ML IV CONT (07:20)
[2023-08-07 08:13] VITALS: BP 120/82; PULSE 75; RESP 15; O2SAT 99
[2023-08-07 08:23] VITALS: BP 121/93; PULSE 70; RESP 16; O2SAT 98
[2023-08-07 08:33] VITALS: BP 130/77; PULSE 69; RESP 13; O2SAT 98
--- NOTE | 2023-08-07 08:40 | WPDANESPN ---
Anes - Prog Note Post-Op Date/Time: 08/07/23 08:40 Cardiovascular status: normal Respiratory status: normal Airway patency: baseline Mental status: baseline Post-Op hydration status: normal Vital Signs: Last Vital Signs Temp 37.6 C H 08/07/23 06:40 Pulse 69 08/07/23 08:33 Resp 13 08/07/23 08:33 BP 130/77 08/07/23 08:33 Pulse Ox 98 08/07/23 08:33 O2 Del Method Room Air 08/07/23 08:33 Pain Score (VAS): 0/10 I/O: Intake & Output 08/06/23 08/07/23 08/07/23 23:59 07:59 15:59 Intake Total 600 Balance 600 Patient Feedback: Patient satisfied with anesthetic care.
== END 2023-08-07 08:42 | disposition home or self-care (01) ==
PROVIDERS: PCP Family Medicine; Visit Provider Internal Medicine Gastroenterology
PROC: 0DJD8ZZ Inspection of Lower Intestinal Tract, Via Natural or Artificial Opening Endoscopic (ICD-10-PCS; CPT 45378; principal; 2023-08-07 08:00)
DX: Z86.010 Personal history of colon polyps (principal); Z12.11 Encounter for screening for malignant neoplasm of colon; D12.5 Benign neoplasm of sigmoid colon; K57.30 Diverticulosis of large intestine without perforation or abscess without bleeding; K64.8 Other hemorrhoids; D12.8 Benign neoplasm of rectum
CPT/HCPCS: 45385; 45380

== ENCOUNTER 2023-08-07 13:05 | Outpatient (NON) | payer MEDICARE, SELFPAY | END 2023-08-07 13:06 | disposition home or self-care (01) | LOC: ANHLAB 08-08 13:08 | PROVIDERS: PCP Family Medicine; Visit Provider Internal Medicine Gastroenterology | DX: D12.5 Benign neoplasm of sigmoid colon (principal); K62.1 Rectal polyp; Z86.010 Personal history of colon polyps | CPT/HCPCS: 88305 ==

== ENCOUNTER 2023-11-21 07:29 | Outpatient (CLI) | payer MEDICARE, SELFPAY ==
--- NOTE | ~2023-11-21 | MM_ITS ---
EXAMINATION: MM screening [facility] BI w hannah HISTORY: Screening mammogram TECHNIQUE: Craniocaudal and mediolateral oblique 3-D tomosynthesis images were obtained and synthetic 2-D images were generated. CAD analysis was submitted and interpreted. COMPARISON: 10/25/2022, 08/03/2021, 07/25/2020 BREAST PARENCHYMAL COMPOSITION:Not Dense. There are scattered areas of fibroglandular density. FINDINGS: No suspicious mass, calcification, or architectural distortion are identified in either madhu ast to suggest malignancy. There has been no suspicious interval change. IMPRESSION: No mammographic evidence of malignancy. Recommend routine screening mammography in one year. BI-RADS Category 1: Negative Reviewed, dictated and finalized at location .
== END 2023-11-21 07:30 | disposition home or self-care (01) ==
PROVIDERS: PCP Family Medicine; Visit Provider Nurse Practitioner
DX: Z12.31 Encounter for screening mammogram for malignant neoplasm of breast (principal)
CPT/HCPCS: 77063; 77067

== ENCOUNTER 2023-12-25 10:00 | Outpatient (CLI) | payer MEDICARE, SELFPAY ==
--- NOTE | ~2023-12-25 | CT_ITS ---
CT Scan of the Chest without Contrast: Clinical Indication: pulmonary nodule Technique: Contiguous sections were acquired throughout the chest without intravenous contrast. Dose reduction technique was used on this scan by utilizing automated exposure control and iterative recon struction technique. The dose-length product (DLP) was 133.61 mGy-cm. COMPARISON: 07/04/2023 Findings: There is no evidence of any significant mediastinal, hilar or axillary lymphadenopathy. The mediastin al soft tissues appear normal. There is no evidence of pleural or pericardial effusion. Stable focal irregular nodule or scarring in the right lung apex. Mild bibasilar chronic scarring or interstitial change is present. Images through the upper abdomen reveal no abnormalities. Impression: Stable small irregular nodule or scarring at the right lung apex. Stable curvilinear chronic scarring or interstitial change the lung bases posteriorly. Reviewed, dictated and finalized at [facility]. Impression: Stable small irregular nodule or scarring at the right lung apex. Stable curvilinear chronic scarring or interstitial change the lung bases poste riorly.
== END 2023-12-25 10:01 | disposition home or self-care (01) ==
PROVIDERS: PCP Family Medicine; Visit Provider Nurse Practitioner Family
DX: R91.1 Solitary pulmonary nodule (principal); Z12.2 Encounter for screening for malignant neoplasm of respiratory organs; R91.8 Other nonspecific abnormal finding of lung field
CPT/HCPCS: 71271

== ENCOUNTER 2024-01-11 10:04 | Outpatient (CLI) | payer MEDICARE, SELFPAY ==
--- NOTE | 2024-01-11 10:11 | ECG_ITS ---
Test Date: 2024-01-11 10:19:24 Measurements Intervals [place] Rate: 82 P: 19 CO: 166 QRS: 11 QRSD: 82 T: 35 QT: 379 QTc: 445 Interpretive Statements SINUS RHYTHM RIGHT VENTRICULAR CONDUCTION DELAY LOW QRS VOLTAGE IN PRECORDIAL LEADS BORDERLINE ECG No previous ECG available for comparison Electronically Signed On 01-11-2024 10:36:52 [employer] by Michael Tam D.O.
== END 2024-01-11 10:05 | disposition home or self-care (01) ==
LOC: ANHLAB 10:07
PROVIDERS: PCP Family Medicine; Visit Provider Family Medicine
DX: R00.0 Tachycardia, unspecified (principal); I45.89 Other specified conduction disorders
CPT/HCPCS: 93005

== ENCOUNTER 2024-07-12 07:41 | Outpatient (CLI) | payer MEDICARE, SELFPAY ==
--- NOTE | ~2024-07-12 | XR_ITS ---
Lumbosacral Spine: AP and lateral views Clinical History: Pain Findings: The normal lordotic curve is maintained. Suspected bilateral L5 pars interarticularis defec ts, with 15 mm anterolisthesis of L5 over S1. There is severe degenerative disc narrowing L5-S1. Ther e is severe facet arthropathy throughout the lumbar spine. There is advanced degenerative disc narrow ing at L1-L2, with moderate degenerative narrowing at L2-L3. The sacroiliac joints are normally outli tammy. Impression: L5 pars interarticularis defects, with 15 mm anterolisthesis of L5 over S1. Additional advanced degenerative spondylitic changes, as above. Reviewed, dictated and finalized at location [facility]. Impression: L5 pars interarticularis defects, with 15 mm anterolisthesis of L5 over S1. Additional advanced degenerative spondylitic changes, as above.
== END 2024-07-12 07:42 | disposition home or self-care (01) ==
PROVIDERS: PCP Family Medicine; Visit Provider Family Medicine
DX: M43.17 Spondylolisthesis, lumbosacral region (principal); M47.816 Spondylosis without myelopathy or radiculopathy, lumbar region; M54.31 Sciatica, right side
CPT/HCPCS: 72100

== ENCOUNTER 2024-08-02 09:00 | Outpatient (RCR) | payer MEDICARE, SELFPAY ==
--- NOTE | 2024-07-30 10:56 | OPREHPOC ---
Outpatient Therapy Plan of Care This is a Multidisciplinary Plan of Care that may contain components documented by all disciplines (PT, OT, and ST.) PT Problem 1 PT Problem #1 Knowledge Deficit PT Goal 1 Goal / Goal Update 1* independent with HEP 2* correct body mechanics with lifting from the floor Target Visit 8 PT Problem 2 PT Problem #2 Pain PT Goal 1 Goal / Goal Update 1* pt report pain at the worst rating of 3/10 2* pt report NO radicular pain into R LE Target Visit 8 PT Problem 3 PT Problem #3 Impaired Flexibility PT Goal 1 Goal / Goal Update increase flexibility over R and L hip, to decrease candy puller lumbar-sacral area: hamstring length with supine SLR to 55' 1* R 2* L anterior hip-quad length with prone knee flexion to 120' 3* R 4* L piriformis length with supine cross leg, pass midline of body, with no reports of tight 5* R 6* L Target Visit 8 PT Problem 4 PT Problem #4 Impaired Strength PT Goal 1 Goal / Goal Update * increase trunk strength to 4+/5, to improve stability to spine Target Visit 8
--- NOTE | 2024-07-30 10:56 | PTOPEVAL1 ---
Assessment and note entered by Carolyne Bashir, PT Evaluation Information Assessment Status Evaluation ICD-10 Condition Codes (PT) Pain in low back M54.50,Radiculopathy, lumbar region M54.16 Onset April 2024 Subjective Information gradual increase in pain, tingling and going into R leg; no history of back pain x ray lumbar: moderate to severe degenerative narrowing lumbar, facet arthropathy, anterolisthesis L 5-S1 activity: retired, active at home Reported Pain Level Pain Score Self Report Additional Pain Score Comments pain range in the past week 0-6/10; into R to ankle-- numb, tingle increase pain: more activity, yard work, first get up in AM, first get up from sitting to standing decrease pain: change position, heat, ice, tylenol with sleeping, use pillow between knees and some issues falling asleep, but not wake up with pain Assessment PT Clinical Summary Britany has the diagnosis of low back pain, radicular pain. She reports intermittent radicular pain into R ankle. Back Index rating of 42% limitation in activity level. x ray report states lumbar: moderate to severe narrowing of disc space, facet arthropathy and anterolisthesis L 5-S1. She is retired and active with home tasks, but does not do fitness activity. With the evaluation: decreased flexibility of R and L hamstring, piriformis and anterior hip-quad; weakness of trunk musculature. Skilled PT services are indicated for modalities to decrease pain; therapeutic exercises and education for pain control and body mechanics. Plan of Care Interventions Electrical Stimulation,Hot Pack/Cold Pack,Manual Therapy,Mechanical Traction,Neuro Re-education, Therapeutic Activities,Therapeutic Exercise, Ultrasound,Other Other Interventions taping PT Services Indicated Yes Treatment Frequency and 1-2x/wk for 8 visits Duration These treatments will address the objective and functional deficits as defined above. The patient will be advanced safely and appropriately in order for the patient to progress towards his/her prior level of function. Additional exercises will be introduced and as well as a comprehensive home exercise program upon discharge, if needed, ?to ensure carryover of functional gains achieved in the clinic. This treatment plan has been reviewed and agreement upon by the patient.
--- NOTE | 2024-08-07 09:48 | OPREHPOC ---
Outpatient Therapy Plan of Care This is a Multidisciplinary Plan of Care that may contain components documented by all disciplines (PT, OT, and ST.) PT Problem 1 PT Problem #1 Knowledge Deficit PT Goal 1 Goal / Goal Update 1* independent with HEP 2* correct body mechanics with lifting from the floor 6--25 d/c goals not addressed Target Visit 8 PT Problem 2 PT Problem #2 Pain PT Goal 1 Goal / Goal Update 1* pt report pain at the worst rating of 3/10 2* pt report NO radicular pain into R LE --25 d/c goals not addressed Target Visit 8 PT Problem 3 PT Problem #3 Impaired Flexibility PT Goal 1 Goal / Goal Update increase flexibility over R and L hip, to decrease tie puller lumbar-sacral area: hamstring length with supine SLR to 55' 1* R 2* L anterior hip-quad length with prone knee flexion to 120' 3* R 4* L piriformis length with supine cross leg, pass midline of body, with no reports of tight 5* R 6* L 6-4-25 d/c goals not addressed Target Visit 8 PT Problem 4 PT Problem #4 Impaired Strength PT Goal 1 Goal / Goal Update * increase trunk strength to 4+/5, to improve stability to spine 6-4-25 d/c goals not addressed Target Visit 8
--- NOTE | 2024-08-07 09:48 | PTOPDC ---
Assessment and note entered by Carolyne Bashir, PT Assessment Status Discharge - Pt Not Present ICD-10 Condition Codes (PT) Pain in low back M54.50,Radiculopathy, lumbar region M54.16 Onset April 2024 Subjective Information Britany called and canceled all her PT appointments due to feeling better. Assessment PT Clinical Summary Britany received the PT evaluation on July 30, then called on August 05 and canceled her appointments. Stated she was feeling better. Discharge PT. The goals were not addressed. Plan of Care PT Services Indicated No
== END 2024-08-07 12:02 | disposition home or self-care (01) ==
LOC: ANHPT 09:00
PROVIDERS: PCP Family Medicine; Visit Provider Family Medicine
DX: M54.41 Lumbago with sciatica, right side (principal); M51.369 Other intervertebral disc degeneration, lumbar region without mention of lumbar back pain or lower extremity pain; M47.816 Spondylosis without myelopathy or radiculopathy, lumbar region
CPT/HCPCS: 97110; 97161; 97530

== ENCOUNTER 2024-12-19 09:35 | Outpatient (CLI) | payer MEDICARE, SELFPAY ==
--- OUTSIDE RECORDS SUMMARY | 2006-01-04 08:00 | XMS_ITS | Continuity of Care Document ---
Author Organization [facility] Address [address] [facility] [address] [place] [address] Phone Care Team Providers Care Neighborhood Planner Name Role Phone Foster OD, Taiwo Unavailable Unavailable Advance Directives Directive Yes / No Effective Date File Name No Information Encounters Encounter Description Practice Location Reason(s) For Visit Diagnoses Date Provider Providers Copied on Encounter [facility], [address], [place], [place], [id number], [place] tel:[phone] SEC [facility] No Information Nov-0 1-200 6 Foster OD Taiwo. [address] [facility] , [address], [place], [address], [place]. tel:[phone] Family History Family Member Type Diagnosis Age At Onset No Information Payers Payer name Insurance type Covered democrat ID Authoriza tion(s) No Information Social History Type Description Quantity Date Captured Comments Sex Female Smoking Status No Information Chief Complaint And Reason For Visit No Information Reason For Referral Reason For Referral No Information History Of Present Illness Encounter Date Complaint History Of Prese nt Illness No Information Functional Status Date Functional Assessmen t No Information Instructions Date Instruction Additional Infor mation No Information Assessments Type Assessment Date No Information Patient Care Teams Name Effective Dates (start - stop) Status Members No Information
--- OUTSIDE RECORDS SUMMARY | 2024-10-24 19:00 | XMS_ITS | Continuity of Care Document ---
Author Organization [facility] Address [address] [place] [id number] Phone Care Team Providers Care Data Warehousing Specialist Name Role Phone Domenic PARKER, Adelso Unavailable Unavailabl e Procedures Procedure Date EXTREMITY STUDY Advance Directives Directive Yes / No Effective Date File Name No Information Encounters Encounter Description Practice Location Reason(s) For Visit Diagnoses Date Provider Providers Copied on Encounter [facility], [address] [place] [address], [id number], tel:[phone] [facility] No Information Domenic Darden. [address] [place] [address], [id number], . tel:[phone] Referring Provider: Adelso Sheth, [address] [place] [address], [phone]. tel:[phone] Family History Family Member Type Diagnosis Age At Onset No Information Payers Payer name Insurance type Covered green party ID Authoriza tion(s) [employer] O [id number] Social History Type Description Quantity Date Captured [...]
--- NOTE | ~2024-12-19 | MM_ITS ---
EXAMINATION: MM screening [facility] w [facility] HISTORY: Screening TECHNIQUE: Craniocaudal and mediolateral oblique 3-D tomosynthesis images were obtained and synthetic 2-D images were generated. CAD analysis was submitted and interpreted. COMPARISON: 10/25/2022 BREAST PARENCHYMAL COMPOSITION: The breasts are heterogeneously dense, which may obscure small masses. FINDINGS: There is no evidence of suspicious mass, calcification, or architectural distortion to suggest malignancy. There has been no suspicious interval change. IMPRESSION: 1. No mammographic evidence of malignancy. Recommend routine screening mammography in one year. BI-RADS Category 2: Benign finding(s) Reviewed, dictated and finalized at location [facility]. IMPRESSION: 1. No mammographic evidence of malignancy. Recommend routine screening mammogra phy in one year. BI-RADS Category 2: Benign finding(s)
== END 2024-12-19 09:36 | disposition home or self-care (01) ==
PROVIDERS: PCP Family Medicine; Visit Provider Nurse Practitioner
DX: Z12.31 Encounter for screening mammogram for malignant neoplasm of breast (principal)
CPT/HCPCS: 77063; 77067